=== PATIENT | male | born 1945 | race Caucasian/White ===

== ENCOUNTER 2020-05-09 17:56 | Inpatient (IN) | payer OTHER ==
[~2020-05-09] VITALS: Ht 25.4 cm; Wt 5.0 kg
[2020-05-09] MEDS ORDERED: ULTRACET (18:31)
[2020-05-09] MEDS ORDERED: LEVSIN0.125 MG (18:31)
[2020-05-09] MEDS ORDERED: CRESTOR5 MG (18:31)
[2020-05-09] MEDS ORDERED: ADULT LOW DOSE81 M1 (18:32)
[2020-05-11] MEDS ORDERED: CLOTRIMAZOLE-BE15 G1 (16:31)
[2020-05-11] MEDS ORDERED: LYSIPLEX PLUS178 ML (16:31)
== END 2020-05-15 08:14 | disposition expired | DRG 101 ==
LOC: ER 17:56 → SEC-K 19:42 → MEDI 05-10 08:19
PROVIDERS: ADMIT Internal Medicine; ATTEND Internal Medicine
PROC: B030ZZZ Magnetic Resonance Imaging (MRI) of Brain (ICD-10-PCS; 2020-05-09)
PROC: 4A12X4Z Monitoring of Cardiac Electrical Activity, External Approach (ICD-10-PCS; principal; 2020-05-11)
PROC: BT43ZZZ Ultrasonography of Bilateral Kidneys (ICD-10-PCS; 2020-05-11)
PROC: 3E0F7SF Introduction of Other Gas into Respiratory Tract, Via Natural or Artificial Opening (ICD-10-PCS; 2020-05-14)
PROC: 4A033R1 Measurement of Arterial Saturation, Peripheral, Percutaneous Approach (ICD-10-PCS; 2020-05-14)
DX: G40.89 Other seizures (principal); N17.8 Other acute kidney failure; C18.4 Malignant neoplasm of transverse colon; N13.39 Other hydronephrosis; E87.2 Acidosis; Z20.828 Contact with and (suspected) exposure to other viral communicable diseases; Z66 Do not resuscitate; Z53.1 Procedure and treatment not carried out because of patient's decision for reasons of belief and group pressure; C61 Malignant neoplasm of prostate; N18.9 Chronic kidney disease, unspecified; D63.8 Anemia in other chronic diseases classified elsewhere; I12.9 Hypertensive chronic kidney disease with stage 1 through stage 4 chronic kidney disease, or unspecified chronic kidney disease; E87.5 Hyperkalemia; R31.0 Gross hematuria
CPT/HCPCS: 70551